=== PATIENT | female | born 1990 | race American Indian/Alaskan Native ===

== ENCOUNTER 2019-11-20 16:38 | Emergency (ER) | payer OTHER ==
[2019-11-20 16:49] VITALS: BP 124/86
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
[2019-11-20] MEDS ORDERED: traMADol 50 MG TAB PO ONE (21:05)
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
== END 2019-11-20 21:51 | disposition home or self-care (01) ==
LOC: ED 16:38
DX: S16.1XXA Strain of muscle, fascia and tendon at neck level, initial encounter (principal); S46.912A Strain of unspecified muscle, fascia and tendon at shoulder and upper arm level, left arm, initial encounter; S39.012A Strain of muscle, fascia and tendon of lower back, initial encounter; Z79.899 Other long term (current) drug therapy; V49.49XA Driver injured in collision with other motor vehicles in traffic accident, initial encounter; Y93.89 Activity, other specified; Y92.488 Other paved roadways as the place of occurrence of the external cause; Y99.8 Other external cause status
CPT/HCPCS: 72040; 72100